=== PATIENT | female | born 1965 | race African-American/Black ===

== ENCOUNTER 2020-05-19 11:36 | Emergency (ER) | payer MEDICAID ==
[~2020-05-19] VITALS: Ht 170.2 cm; Wt 76.9 kg
[~2020-05-19 11:36] MED LIST: ASPIR 8181 MG PO; IBUPROFEN 800800 MG PO; NOHOMEMEDICATIONS; PHENERGAN 25 MG25 M1 PO; PROMETHAZINE-C120 ML PO; ZOFRAN ODT4 MG PO; ZPAK PO
[2020-05-19 14:05] VITALS: BP 147/109
--- NOTE | 2020-05-19 14:33 | EKG ---
[place] [address] ELECTROCARDIOGRAM REPORT Name: SAVANA SALASDANTEIZABELA Quan Room: [facility]#: [id number] Admission: 05/19/20 Attend Phys: Discharge: 05/19/20 Date of : 67 Date of Service: 05/19/20 1212 Report #: [id number] THIS REPORT FOR: //name// [facility] ED Test Date: 2020-05-19 Test Time: 12:12:22 Pat Name: MARTHA SALAS Department: Room: Gender: F [employer] Teacher: : 1965 Requested By: Cruz Olsen Order Number: [id number] MD: Yao Concepcion Measurements Intervals [place] Rate: 71 P: 56 SC: 142 QRS: 49 QRSD: 88 T: 48 QT: 461 QTc: 502 Interpretive Statements Sinus rhythm Abnormal T, consider ischemia, anterior leads No previous ECG available for comparison Electronically Signed On 05-19-2020 14:33:06 CDT by Yao Concepcion [email or web address] <ELECTRONICALLY SIGNED> By: Yao Concepcion MD, [facility] 05/19/20 1433 1212 121 Yao Concepcion MD, [facility] /EPI
== END 2020-05-19 14:05 | disposition home or self-care (01) ==
LOC: M.ERS 11:36
DX: R41.82 Altered mental status, unspecified (principal); C79.81 Secondary malignant neoplasm of breast; I10 Essential (primary) hypertension; I48.91 Unspecified atrial fibrillation; E03.9 Hypothyroidism, unspecified; F17.210 Nicotine dependence, cigarettes, uncomplicated; Z98.890 Other specified postprocedural states; Z88.8 Allergy status to other drugs, medicaments and biological substances